=== PATIENT | male | born 1980 | race Caucasian/White ===

== ENCOUNTER → 2021-11-26 16:05 | Outpatient (BNVA) | payer SELFPAY | PROVIDERS: Visit Provider Emergency Medicine | DX: E66.9 Obesity, unspecified (principal); R20.2 Paresthesia of skin; M79.601 Pain in right arm; M79.602 Pain in left arm; Z68.41 Body mass index [BMI] 40.0-44.9, adult | CPT/HCPCS: 36416; 82962 ==